=== PATIENT | female | born 1975 | race Caucasian/White ===

== ENCOUNTER → 2018-05-15 12:49 | Outpatient (CLI) | payer SELFPAY ==
[2018-05-15 14:18] LABS: Follicle Stimulating Hormone 4.89 mIU/mL
[2018-05-15 14:32] LABS: TSH w/ Reflex to FT4 2.04 uIU/mL (0.47-4.68)
== END ==
PROVIDERS: Visit Provider Physician Assistant
DX: R45.86 Emotional lability (principal)
CPT/HCPCS: 36415; 83001; 84443

== ENCOUNTER 2021-08-21 10:53 | Emergency (ER) | payer SELFPAY ==
[2021-08-21] VITALS (9 sets, daily range): BP systolic 137–164; BP diastolic 84–109; PULSE 75–93; RESP 16–31; TEMP 36.7; O2SAT 97–100; BMI 29.5
--- NOTE | 2021-08-21 11:04 | DI.CT.S_ITS ---
PROCEDURE: CT ANGIO HEAD AND NECK INDICATIONS: R facial numbness, tingling, right tongue, blurred vision TECHNIQUE: After the administration of intravenous contrast, 1 mm thick sections acquired from the aortic arch through the [place] of [place]. Post-contrast 4.5 mm thick sections then re-acquired from the foramen magnum to the vertex. 3-dimensional czxmjkx-gntcscibh-khwweconqc (MIP) and/or volume rendering reformats were acquired of the central intracranial vasculature and neck separately. For radiation dose reduction, the following was used: automated exposure control, adjustment of mA and/or kV according to patient size. COMPARISON: [facility], CT, CT STROKE, 08/21/2021, 11:14. FINDINGS: Image quality: Excellent. BRAIN: CSF spaces: Ventricles are normal in size and shape. Basal cisterns are patent. No extra-axial fluid collections. Brain: No midline shift. No intracranial bleeds or masses. Ernandez-white matter interface appears intact. Skull and face: Calvarium and facial bones appear intact, without suspicious lesions. Orbits appear normal. Sinuses: Sinuses and mastoids are clear. HEAD CT ANGIOGRAPHY: Anterior circulation: Intracranial internal carotid arteries are normal in size and flow. The flow within the paired anterior cerebral arteries is normal and symmetric. The flow within the middle cerebral arteries is normal and symmetric. The anterior communicating artery is seen. No aneurysms are seen. Posterior circulation: Visualized portions of the vertebral arteries demonstrate normal caliber, and join to form a normal appearing basilar artery. Flow within the posterior cerebral arteries is normal and symmetric. No aneurysms are seen. Vertebral arteries are codominant. 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 The origins of the common carotid arteries appear patent. The common carotid arteries demonstrate normal caliber and courses. The bifurcation regions are both widely patent. The internal carotid arteries demonstrate normal calibers and courses. Posterior circulation: The origins of the vertebral arteries both appear widely patent. The more superior extracranial portions of both vertebral arteries also demonstrate normal courses and calibers. They join to form a normal appearing basilar artery. Soft tissues: Visualized neck soft tissues demonstrate no suspicious abnormalities. Thyroid gland appears heterogeneous. Bones: No suspicious bony lesions. Visualized cervical spine appears normally aligned. IMPRESSION: 1. No acute intracranial process. 2. No areas of hemodynamically significant stenosis, vascular occlusion or aneurysmal dilation within the anterior or posterior circulation. 3. No areas of hemodynamically significant stenosis, vascular occlusion or aneurysmal dilation within the neck vasculature. Any quantitative measurements of stenosis were performed using NASCET criteria. Dictated by: Sushila Sofia M.D. on 08/21/2021 at 11:40 Approved by: Sushila Sofia M.D. on 08/21/2021 at 11:45
--- NOTE | 2021-08-21 11:04 | DI.CT.S_ITS ---
PROCEDURE: CT STROKE INDICATIONS: R facial numbness, tingling, right tongue, blurred vision TECHNIQUE: Noncontrast 4.5 mm thick angled axial sections acquired from the foramen magnum to the vertex, with coronal reformats. For radiation dose reduction, the following was used: automated exposure control, adjustment of mA and/or kV according to patient size. COMPARISON: [facility], CT, CT ANGIO HEAD AND NECK, 08/21/2021, 11:14. FINDINGS: Image quality: Excellent. CSF spaces: Basal cisterns are patent. No extra-axial fluid collections. Ventricles are normal in size and shape. Brain: No midline shift. No intracranial masses or hemorrhage. Ernandez-white matter interface is normal. Skull and face: Calvarium and visualized facial bones are intact, without suspicious lesions. Sinuses: Visualized sinuses and mastoids are clear. IMPRESSION: 1. No acute intracranial process. The above findings were discussed with Dr. Gerson Su on 08/21/2021 at 11:33 a.m. This study fulfills neurological imaging criteria for inclusion or exclusion of acute stroke therapies based on available published neurological imaging guidelines. Dictated by: Sushila Sofia M.D. on 08/21/2021 at 11:33 Approved by: Sushila Sofia M.D. on 08/21/2021 at 11:37
[2021-08-21 11:21] LABS: Add Manual Diff / Slide Review NO; Basophils Absolute Auto 0 /uL (0-100); Basophils Percent Auto 0.7 % (0-2); Eosinophils Absolute Auto 100 /uL (0-450); Eosinophils Percent Auto 2.2 % (2-4); Hematocrit 40.8 % (36-46); Hemoglobin 13.5 g/dL (12.0-16.0); Lymphocytes Absolute Auto 1700 /uL (1100-4500); Lymphocytes Percent Auto 29.6 % (25-40); Mean Corpuscular Hemoglobin 28.4 PG (26-34); Monocytes Absolute Auto 500 /uL (0-900); Monocytes Percent Auto 8.3 % (3-14); Neutrophils Absolute Auto 3400 /uL (1500-7000); Neutrophils Percent Auto 59.2 % (50-75); Platelet Count 339 X10^3/uL (150-400); Red Blood Cell Count 4.75 X10^6/uL (4.0-5.2); Red Cell Distribution Width 14.7 % (11.6-14.8); White Blood Cell Count 5.7 X10^3/uL (4.5-11.0)
[2021-08-21 11:29] LABS: Alanine Aminotransferase 20 IU/L (<35); Albumin 5.2 g/dL (3.5-5.0); Albumin Globulin Ratio 1.3 (1.0-2.8); Alkaline Phosphatase 60 U/L (38-126); Aspartate Aminotransferase 33 IU/L (14-36); BUN Creatinine Ratio 17.1 (6-22); Bilirubin Total 0.5 mg/dL (0.2-1.3); Blood Urea Nitrogen 14 mg/dL (7-17); Calcium 9.4 mg/dL (8.4-10.2); Carbon Dioxide 27 mmol/L (22-32); Chloride 104 mmol/L (98-107); Creatine Kinase 240 U/L (30-135); Estimated Glomerular Filt Rate > 60.0 mL/min (>60); Globulin 3.9 g/dL (1.7-4.1); Glucose 89 mg/dL (70-100); HEMOLYSIS < 15 (0-50); Sodium 142 mmol/L (137-145); Total Protein 9.1 g/dL (6.3-8.2)
[2021-08-21] MEDS: SODIUM CHLORIDE 0.9% 1,000 ML 150 ML IV (11:30)
[2021-08-21 11:39] LABS: Troponin I < 0.012 ng/mL (0.01-0.034)
[2021-08-21 11:44] LABS: CKMB % Relative Index 0.6 % (1.5-5.0); Creatine Kinase MB 1.37 ng/mL (<2.37)
--- NOTE | 2021-08-21 13:54 | ED.NEUROSD ---
HPI - Neuro Symptoms/Deficit General Chief Complaint: Neuro Symptoms/Deficit Stated Complaint: facial numbness/ HTN Time Seen by Provider: 08/21/21 10:55 Source: patient Mode of arrival: Family Vehicle History of Present Illness HPI Narrative: 46-year-old female nonsmoker with history of palpitations presents by EMS for evaluation of headache neck pain and right-sided facial numbness and tingling as well as right-sided tongue involvement. She states that she has had a headache for the past few days which isn't all that abnormal from her historical migraines. About 1-2 hours prior to her arrival she started developing some right-sided facial tingling. She also claims her blood pressure is elevated. She denies any obvious provocation of her headache. She denies any recent trauma or injury. She has no fever or chills. She denies nausea, vomiting or diarrhea. She has no chest pain or shortness of breath. She complains of R sided head pain and cheek pain with involvement of her ear and upper teeth. She denies runny nose, sore throat or drainage in her mouth. She denies any numbness to her teeth. On Anticoagulants: No Related Data Previous Rx's Medication Instructions Recorded ketorolac 10 mg tablet 10 mg PO Q6H PRN #14 tab 08/21/21 metoclopramide HCl 10 mg tablet 10 mg PO Q6H PRN #20 tab 08/21/21 (Reglan) ondansetron 4 mg disintegrating 4 mg PO TID-QID PRN #10 tab 08/21/21 tablet Allergies Allergy/AdvReac Type Severity Reaction Status Date / Time No Known Drug Allergies Allergy Unverified 05/15/18 11:56 Review of Systems Review of Systems Narrative: GENERAL: See HPI HEENT: See HPI RESPIRATORY: Denies dyspnea, cough, wheezing, hemoptysis, sputum. CARDIOVASCULAR: Denies chest pain, palpitations, orthopnea, edema, GASTROINTESTINAL: Denies nausea, vomiting, abdominal pain, diarrhea, constipation, melena. : Denies dysuria, frequency, incontinence, hematuria, urinary retention. MUSCULOSKELETAL: denies weakness, joint pain, or bony pain SKIN: Denies rash, skin lesions, or other NEUROLOGIC: See HPI PSYCHIATRIC: No concerning psychosocial issues. 12 point review of systems is negative except for those stated above Hematologic/Lymphatic On Anticoagulants: No Patient History Social History Smoking Status: Never smoker Smoking Status: Never smoker alcohol intake frequency: 0-2 drinks per day Substance Use Type: does not use Exam Narrative Exam Narrative: GENERAL: [46 year old patient appears stated age. Well-developed patient, in mild distress. GCS 15 HEAD: Atraumatic. Tender to palpate along right side ago mom a and anterior to ear, no obvious swelling, erythema or warmth. EYES: Pupils equal round and reactive. Extraocular motions intact. No scleral icterus. No injection or drainage. ENT: Nose without bleeding, purulent drainage. Throat without erythema, tonsillar hypertrophy or exudate. Airway patent. No intraoral abnormalities are obvious. NECK: Trachea midline. Non tender CARDIOVASCULAR: Regular rate and rhythm without murmurs, gallops, or rubs. RESPIRATORY: Clear to auscultation. Breath sounds equal bilaterally. No wheezes, rales, or rhonchi. GASTROINTESTINAL: Abdomen soft, non-tender, nondistended. EXTREMITIES: No edema or joint tenderness. BACK: Nontender without deformity or crepitance. No flank tenderness. NEURO: AOx3. SKIN: No rash or erythema of visible areas NIH Stroke Scale 1a. LOC: Patient is alert and keenly responsive (0) 1b. LOC Questions: Patient answers both LOC questions accurately (0) 1c. LOC Commands: Patient performs both tasks correctly (0) 2. Best Gaze: Normal (0) 3. Visual: No visual loss (0) 4. Facial palsy: Normal symmetrical movements (0) 5. Motor arm: No drift (0) 6. Motor leg: No drift (0) 7. Limb ataxia: Absent (0) 8. Sensory: Normal (0) 9. Best language: No aphasia; normal (0) 10. Dysarthria: Normal (0) 11. Extinction and inattention: No abnormality (0) NIHSS: 0 Initial Vital Signs Initial Vital Signs: Vital Signs Temperature 98.1 F 08/21/21 11:05 Pulse Rate 93 H 08/21/21 11:05 Respiratory Rate 18 08/21/21 11:05 Blood Pressure 164/104 H 08/21/21 11:05 Pulse Oximetry 99 08/21/21 11:05 Course Orders Ordered: ED Orders 08/21/21 11:[address] angio head and neck Stat EKG-12 Lead Stat 08/21/21 11:10 Complete Blood Count AUTO DIFF Stat Comprehensive Metabolic Panel Stat Troponin & CK Cardiac Panel Stat 08/21/21 14:21 Consult to CHEMICAL EQUIPMENT REPAIRER - [place] Stat Discontinued Medications Dexamethasone (Dexamethasone 10 Mg/Ml Vial) 10 mg IV NOW ONE Stop: 08/21/21 14:10 Last Admin: 08/21/21 14:24 Dose: 10 mg Documented by: NICOLE Sodium Chloride (Normal Saline 0.9%) 1,000 mls @ 150 mls/hr IV CONT MOON Last Infusion: 08/21/21 15:15 Dose: 0 mls/hr Documented by: Admin: 08/21/21 11:30 Dose: 150 mls/hr Documented by: NICOLE Ketorolac Tromethamine (Ketorolac 30 Mg/Ml Vial) 15 mg IV NOW ONE Stop: 08/21/21 14:10 Last Admin: 08/21/21 14:24 Dose: 15 mg Documented by: NICOLE Metoclopramide HCl (Metoclopramide 10 Mg/2 Ml Inj) 10 mg IV NOW ONE Stop: 08/21/21 14:10 Last Admin: 08/21/21 14:24 Dose: 10 mg Documented by: NICOLE Reevaluation(s) Reevaluation #1: Patient still having right-sided head and facial pain after initial set of images, despite blood pressure improving to the 130s. Treatment for atypical migraine ordered Reevaluation #2: Patient has complete resolution of symptoms after migraine therapies. Vital Signs Vital signs: Vital Signs - 8 hr 08/21/21 12:00 08/21/21 12:30 08/21/21 13:00 Pulse Rate 76 78 75 Respiratory Rate 16 31 H 20 Blood Pressure 149/95 H 152/92 H 155/94 H Pulse Oximetry 98 98 98 08/21/21 13:30 08/21/21 14:00 Pulse Rate 75 81 Respiratory Rate 20 20 Blood Pressure 160/84 H 137/90 Pulse Oximetry 98 98 MDM - Neuro Symptoms/Deficit Lab Data Result diagrams: 08/21/21 11:10 08/21/21 11:10 Labs: Lab Results 08/21/21 08/21/21 Range/Units 11:10 11:10 WBC 5.7 (4.5-11.0) X10^3/uL RBC 4.75 (4.0-5.2) X10^6/uL Hgb 13.5 (12.0-16.0) g/dL Hct 40.8 (36-46) % MCV 86.0 (80-100) fL MCH 28.4 (26-34) PG MCHC 33.0 (30-36) % RDW 14.7 (11.6-14.8) % Plt Count 339 (150-400) X10^3/uL Neut % (Auto) 59.2 (50-75) % Lymph % (Auto) 29.6 (25-40) % [place] % (Auto) 8.3 (3-14) % Eos % (Auto) 2.2 (2-4) % Baso % (Auto) 0.7 (0-2) % Neut # (Auto) 3400 (3226-4237) /uL Lymph # (Auto) 1700 (1320-6312) /uL [place] # (Auto) 500 (0-900) /uL Eos # (Auto) 100 (0-450) /uL Baso # (Auto) 0 (0-100) /uL Sodium 142 (137-145) mmol/L Potassium 4.0 (3.4-5.1) mmol/L Chloride 104 (98-107) mmol/L Carbon Dioxide 27 (22-32) mmol/L BUN 14 (7-17) mg/dL Creatinine 0.82 (0.52-1.04) mg/dL Estimated GFR > 60.0 (>60) mL/min BUN/Creatinine Ratio 17.1 (6-22) Glucose 89 (70-100) mg/dL Calcium 9.4 (8.4-10.2) mg/dL Total Bilirubin 0.5 (0.2-1.3) mg/dL AST 33 (14-36) IU/L ALT 20 (<35) IU/L Alkaline Phosphatase 60 (38-126) U/L Total Creatine Kinase 240 H (30-135) U/L CK-MB (CK-2) 1.37 (<2.37) ng/mL CK-MB (CK-2) Rel Index 0.6 L (1.5-5.0) % Troponin I < 0.012 (0.01-0.034) ng/mL Total Protein 9.1 H (6.3-8.2) g/dL Albumin 5.2 H (3.5-5.0) g/dL Globulin 3.9 (1.7-4.1) g/dL Albumin/Globulin Ratio 1.3 (1.0-2.8) Imaging Data CT scan - head: Radiologist's Impression: [address] [address] [address] Scan Report Signed Patient: Bobbi Ray MR#: [id number] : 1975 Acct:[id number] Age/Sex: 46 / F Date of Service: 08/21/21 Loc: ED Accession Number: [id number] ?? Procedure: CT Stroke Ordering Provider: Gerson Su D.O. PROCEDURE:? CT STROKE ? INDICATIONS:? R facial numbness, tingling, right tongue, blurred vision ? TECHNIQUE:? Noncontrast 4.5 mm thick angled axial sections acquired from the foramen magnum to the vertex, with coronal reformats.? For radiation dose reduction, the following was used:? automated exposure control, adjustment of mA and/or kV according to patient size.? ? COMPARISON:? [facility], CT, CT ANGIO HEAD AND NECK, 08/21/2021, 11:14. ? FINDINGS:? Image quality:? Excellent.? ? CSF spaces:? Basal cisterns are patent.? No extra-axial fluid collections.? Ventricles are normal in size and shape.? ? Brain:? No midline shift.? No intracranial masses or hemorrhage.? Ernandez-white matter interface is normal.? ? Skull and face:? Calvarium and visualized facial bones are intact, without suspicious lesions.? ? Sinuses:? Visualized sinuses and mastoids are clear.? ? IMPRESSION:? ? 1. No acute intracranial process. ? The above findings were discussed with Dr. Gerson Su on 08/21/2021 at 11:33 a.m. ? This study fulfills neurological imaging criteria for inclusion or exclusion of acute stroke therapies based on available published neurological imaging guidelines.? ? ? Dictated by: Sushila Sofia M.D. on 08/21/2021 at 11:33 ? ? Approved by: Sushila Sofia M.D. on 08/21/2021 at 11:37 ? CTA Head/Neck: Radiologist's Impression: Launch?Image [address] [address] [address] Scan Report Signed Patient: Bobbi Ray MR#: [id number] : 1975 Acct:[id number] Age/Sex: 46 / F Date of Service: 08/21/21 Loc: ED Accession Number: [id number] ?? Procedure: CT angio head and neck Ordering Provider: Gerson Su D.O. PROCEDURE:? CT ANGIO HEAD AND NECK ? INDICATIONS:? R facial numbness, tingling, right tongue, blurred vision ? TECHNIQUE:? After the administration of intravenous contrast, 1 mm thick sections acquired from the aortic arch through the [place] of [place].? Post-contrast 4.5 mm thick sections then re-acquired from the foramen magnum to the vertex.? 3-dimensional secriau-mtfqvpgdl-xcgnwqlirp (MIP) and/or volume rendering reformats were acquired of the central intracranial vasculature and neck separately. For radiation dose reduction, the following was used:? automated exposure control, adjustment of mA and/or kV according to patient size.? ? COMPARISON:? [facility], CT, CT STROKE, 08/21/2021, 11:14. ? FINDINGS:? Image quality:? Excellent.? ? BRAIN:? CSF spaces:? Ventricles are normal in size and shape.? Basal cisterns are patent.? No extra-axial fluid collections.? ? Brain:? No midline shift.? No intracranial bleeds or masses.? Ernandez-white matter interface appears intact.? ? Skull and face:? Calvarium and facial bones appear intact, without suspicious lesions.? Orbits appear normal.? ? Sinuses:? Sinuses and mastoids are clear.? ? HEAD CT ANGIOGRAPHY:? Anterior circulation:? Intracranial internal carotid arteries are normal in size and flow.? The flow within the paired anterior cerebral arteries is normal and symmetric.? The flow within the middle cerebral arteries is normal and symmetric.? The anterior communicating artery is seen.? No aneurysms are seen.? ? Posterior circulation:? Visualized portions of the vertebral arteries demonstrate normal caliber, and join to form a normal appearing basilar artery.? Flow within the posterior cerebral arteries is normal and symmetric.? No aneurysms are seen.? Vertebral arteries are codominant. ? NECK CT ANGIOGRAPHY:? Carotid system:? 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 The origins of the common carotid arteries appear patent.? The common carotid arteries demonstrate normal caliber and courses.? The bifurcation regions are both widely patent.? The internal carotid arteries demonstrate normal calibers and courses.? ? Posterior circulation:? The origins of the vertebral arteries both appear widely patent.? The more superior extracranial portions of both vertebral arteries also demonstrate normal courses and calibers.? They join to form a normal appearing basilar artery.? ? Soft tissues:? Visualized neck soft tissues demonstrate no suspicious abnormalities.? Thyroid gland appears heterogeneous. ? Bones:? No suspicious bony lesions.? Visualized cervical spine appears normally aligned.? IMPRESSION:? ? 1. No acute intracranial process. ? 2. No areas of hemodynamically significant stenosis, vascular occlusion or aneurysmal dilation within the anterior or posterior circulation. ? 3. No areas of hemodynamically significant stenosis, vascular occlusion or aneurysmal dilation within the neck vasculature.? ? Any quantitative measurements of stenosis were performed using NASCET criteria.? ? ? Dictated by: Sushila Sofia M.D. on 08/21/2021 at 11:40 ? ? Approved by: Sushila Sofia M.D. on 08/21/2021 at 11:45 ? MDM Narrative Medical decision making narrative: Headache considerations include, but not limited to: Subarachnoid hemorrhage, but unlikely as patient denies sudden onset of pain, not worst of life, or neck pain Meningitis considered, but thought unlikely given lack of Brudzinski's, Kernig's sign, altered mental status or fever Giant cell arteritis considered, but thought unlikely given lack of unilateral findings, pain in faith, vision change HTN Emergency considered, but thought unlikely given normal vitals Other serious diagnoses considered unlikely given lack of red flag findings such as sudden onset, increasing frequency, immunocompromise, systemic signs (fever, chills, stiff neck, or rash), focal neurologic findings, trauma, blood thinners, etc. Patient's symptoms improved over duration of stay with above-stated therapies. Findings and discharge diagnosis discussed with patient/family followed by verbalization of understanding Return precautions discussed with patient/family whom verbalize understanding. Discharge Plan Departure Patient Disposition: Home Clinical Impression: Atypical migraine, Hypertension Instructions: DI for Headache Activity Restrictions/Additional Instructions: *You have been diagnosed with [atypical migraine Headache ]. Your history and physical exam as well as labs, imaging and response to therapies are very reassuring. There is no evidence of stroke, bleeding in your brain, hypertensive emergency or other significant diagnosis which would require a specific or immediate intervention *What to do: *Take medications as directed *Follow up with your primary care provider in 2-3 days, call for an appointment. Let them know you were seen in the Emergency Department and that we ask that you be seen in follow up *Return to ER if you should have any new, worsening or concerning symptoms, such as [ fever > 101F, neck pain or stiffness, vomiting, confusion, seizure, focal weakness, vision change, speech deficit or other concerning symptoms ] . Prescriptions: New metoclopramide HCl [Reglan] 10 mg tablet 10 mg PO Q6H PRN (Reason: nausea and vomiting) Qty: 20 0RF ondansetron 4 mg tablet,disintegrating 4 mg PO TID-QID PRN (Reason: nausea and vomiting) Qty: 10 0RF ketorolac 10 mg tablet 10 mg PO Q6H PRN (Reason: pain) Qty: 14 0RF
[2021-08-21] MEDS: METOCLOPRAMIDE 10 MG/2 ML INJ IV (14:24)
[2021-08-21] MEDS: DEXAMETHASONE 10 MG/ML VIAL IV (14:24)
[2021-08-21] MEDS: KETOROLAC 30 MG/ML VIAL 15 MG IV (14:24)
--- NOTE | 2021-08-21 15:20 | CM.SWNOTE ---
SKOOG OPERATOR Note SKOOG OPERATOR receives consult and enters room to meet with patient. Patient is 46 y/o female who presents to ED via EMS due to concern for facial numbness and hypertension. SKOOG OPERATOR receives consult regarding patient not currently established with insurance. 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 Patient states she has attempted to apply several times with [facility] and has been denied. Registration provides patient with medical assistance application form regarding patient's ED visit. 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 Patient presents as resourceful and competent. Patient states she is able to fill out assistance application and will mail [facility] to [facility]. Plan: Patient to d/c when medically clear. [place]
== END 2021-08-21 16:46 | disposition home or self-care (01) ==
PROVIDERS: Emergency Provider Emergency Medicine
DX: G43.909 Migraine, unspecified, not intractable, without status migrainosus (principal); I10 Essential (primary) hypertension
CPT/HCPCS: 36415; 70450; 70496; 70498; 80053; 82550; 82553; 84484; 85025; 93005; 93010; 96361; 96374; 96375; 99284; J1100; J1885; J2765; Q9967

== ENCOUNTER → 2022-03-22 07:56 | Outpatient (CLI) | payer OTHER, SELFPAY ==
--- NOTE | 2022-03-22 | DI.US.S_ITS ---
PROCEDURE: US ABDOMEN LIMITED INDICATIONS: RIGHT UPPER QUADRANT PAIN TECHNIQUE: Real-time focused scanning was performed of the abdomen, with image documentation. COMPARISON: [facility], US, ABDOMEN COMPLETE, 07/20/2013, 10:33. FINDINGS: The liver demonstrates mildly enlarged size. The liver demonstrates generalized mildly increased echogenicity. This decreases ultrasound sensitivity for detection of hepatic masses. Multiple liver cysts are seen, with the largest on the left measuring up to 17 mm. On the right, a cystic cluster versus a septated cyst can be seen that measures up to 14 mm. The main portal vein demonstrates normal size and demonstrates normal appearing, hepatopetal flow. No findings of gallstones or sludge are seen. The gallbladder wall is not thickened, measuring 3 mm or less. No specific pericholecystic fluid is seen. The sonographic Helm sign is negative. There is no biliary dilatation, the common bile duct measures 4-5 mm. No significant pancreatic abnormality is seen on these images. At the inferior pole of the right kidney, incidental note is made of an anechoic 13 mm cyst. IMPRESSION: The gallbladder demonstrates a normal sonographic appearance. No biliary dilatation is seen. Mildly enlarged, mildly fatty liver. Liver and right renal cysts can be seen. Dictated by: Ac Silva M.D. on 03/22/2022 at 13:27 Approved by: Ac Silva M.D. on 03/22/2022 at 13:29
== END ==
PROVIDERS: PCP Physician Assistant; Referring Provider Physician Assistant; Visit Provider Physician Assistant
DX: K76.89 Other specified diseases of liver (principal); K76.0 Fatty (change of) liver, not elsewhere classified; N28.1 Cyst of kidney, acquired; R10.11 Right upper quadrant pain
CPT/HCPCS: 76705

== ENCOUNTER → 2022-04-17 17:49 | Outpatient (CLI) | payer OTHER, SELFPAY ==
[2022-04-17 19:35] LABS: Influenza A - CEPHEID Flu A POSITIVE (NEGATIVE); Influenza B - CEPHEID Flu B NEGATIVE (NEGATIVE); Respiratory Syncytial Virus Negative (Negative)
[2022-04-17 19:42] LABS: COVID-19 CEPHEID 4-PLEX PCR Negative (Negative)
== END ==
PROVIDERS: PCP Physician Assistant; Visit Provider Physician Assistant
DX: R05.1 Acute cough (principal)
CPT/HCPCS: 0241U

== ENCOUNTER → 2024-03-12 14:18 | Outpatient (CLI) | payer OTHER, SELFPAY ==
[2024-03-12 15:32] LABS: Add Manual Diff / Slide Review NO; Basophils Absolute Auto 100 /uL (0-100); Eosinophils Absolute Auto 100 /uL (0-450); Eosinophils Percent Auto 2.3 % (2-4); Hemoglobin 10.1 g/dL (12.0-16.0); Lymphocytes Absolute Auto 1900 /uL (1100-4500); Lymphocytes Percent Auto 32.3 % (25-40); Mean Corpuscular HGB Conc 31.6 % (30-36); Mean Corpuscular Hemoglobin 22.5 PG (26-34); Mean Corpuscular Volume 71.2 fL (80-100); Monocytes Absolute Auto 500 /uL (0-900); Monocytes Percent Auto 8.8 % (3-14); Neutrophils Absolute Auto 3300 /uL (1500-7000); Neutrophils Percent Auto 55.6 % (50-75); Platelet Count 364 X10^3/uL (150-400); Red Blood Cell Count 4.49 X10^6/uL (4.0-5.2); Red Cell Distribution Width 16.9 % (11.6-14.8); White Blood Cell Count 5.9 X10^3/uL (4.5-11.0)
[2024-03-12 15:49] LABS: HEMOLYSIS < 15 (0-50); Iron 29 ug/dL (37-170)
[2024-03-12 15:54] LABS: Alanine Aminotransferase 12 IU/L (<35); Albumin 4.5 g/dL (3.5-5.0); Albumin Globulin Ratio 1.6 (1.0-2.8); Alkaline Phosphatase 68 U/L (38-126); Aspartate Aminotransferase 24 IU/L (14-36); BUN Creatinine Ratio 14.5 (6-22); Bilirubin Total 0.5 mg/dL (0.2-1.3); Blood Urea Nitrogen 12 mg/dL (7-17); Calcium 9.3 mg/dL (8.4-10.2); Carbon Dioxide 24 mmol/L (22-32); Chloride 106 mmol/L (98-107); Estimated Glomerular Filt Rate > 60 mL/min (>60); Globulin 2.9 g/dL (1.7-4.1); Glucose 72 mg/dL (70-100); HEMOLYSIS < 15 (0-50); Potassium 4.1 mmol/L (3.4-5.1); Sodium 138 mmol/L (137-145); Total Protein 7.4 g/dL (6.3-8.2)
[2024-03-12 15:59] LABS: Percent Iron Saturation 6 % (15-50); Total Iron Binding Capacity 451 ug/dL (265-497); Transferrin 358 mg/dL (206-381)
[2024-03-12 16:21] LABS: TSH w/ Reflex to FT4 4.14 uIU/mL (0.47-4.68)
== END ==
PROVIDERS: PCP Physician Assistant; Referring Provider Family Medicine; Visit Provider Family Medicine
DX: N92.0 Excessive and frequent menstruation with regular cycle (principal); Z76.89 Persons encountering health services in other specified circumstances; E61.1 Iron deficiency; G62.9 Polyneuropathy, unspecified; E55.9 Vitamin D deficiency, unspecified; R00.2 Palpitations; R20.2 Paresthesia of skin
CPT/HCPCS: 36415; 80053; 83540; 83550; 83735; 84443; 85025

== ENCOUNTER → 2024-03-22 13:59 | Outpatient (CLI) | payer OTHER, SELFPAY ==
--- NOTE | 2024-03-22 14:15 | DI.US.S_ITS ---
PROCEDURE: US ABDOMEN LIMITED INDICATIONS: RUQ pain, cyst on liver (prior US 2021) TECHNIQUE: Real-time scanning was performed of the abdominal and retroperitoneal organs, with image documentation. COMPARISON: [facility], US, US ABDOMEN LIMITED, 03/22/2022, 8:35. FINDINGS: Liver: Liver is normal in . Multiple foci of decreased echogenicity are present within the liver the largest measuring 2.4 cm. Gallbladder: No gallstones. No wall thickening. No pericholecystic edema. Negative sonographic Helm's sign. Biliary ducts: Intrahepatic bile ducts are non-dilated. Extrahepatic bile duct caliber measures 4.9 mm. Normal is 6-7 mm or less in diameter, or 10 mm or less post-cholecystectomy. Pancreas: Visualized portions of the pancreas are sonographically normal. Miscellaneous: No free abdominal fluid. IMPRESSION: Multiple simple appearing hepatic cysts. Dictated by: Sushila Sofia M.D. on 03/22/2024 at 20:44 Approved by: Sushila Sofia M.D. on 03/22/2024 at 20:45
[2024-03-22 15:03] LABS: Reticulocyte Count, Percent 1.1 % (1.1-2.6)
[2024-03-22 16:35] LABS: Pregnancy Test Urine Negative (Negative)
[2024-03-25 19:08] LABS: Deamidated Gliadin Ab IgA 10 units (0-19); Deamidated Gliadin Ab IgG 6 units (0-19); Immunoglobulin A,Qn 77 mg/dL (87-352); t-Transglutaminase IgA <2 U/mL (0-3)
[2024-03-26 20:09] LABS: Estrogen 248 pg/mL (.)
== END ==
PROVIDERS: PCP Family Medicine; Referring Provider Family Medicine; Visit Provider Family Medicine
DX: K76.89 Other specified diseases of liver (principal); K76.0 Fatty (change of) liver, not elsewhere classified; R10.11 Right upper quadrant pain; R20.2 Paresthesia of skin; E61.1 Iron deficiency; N95.1 Menopausal and female climacteric states; N92.0 Excessive and frequent menstruation with regular cycle; Z32.00 Encounter for pregnancy test, result unknown; R00.2 Palpitations
CPT/HCPCS: 36415; 76705; 81025; 82672; 82784; 83001; 83516; 85045

== ENCOUNTER → 2024-03-23 13:10 | Outpatient (CLI) | payer OTHER, SELFPAY ==
[2024-03-25 10:19] LABS: Fecal Immunochemical Test Negative (Negative)
== END ==
LOC: LAB 13:12
PROVIDERS: PCP Family Medicine; Referring Provider Family Medicine; Visit Provider Family Medicine
DX: R20.2 Paresthesia of skin (principal); E61.1 Iron deficiency; N92.0 Excessive and frequent menstruation with regular cycle; K76.0 Fatty (change of) liver, not elsewhere classified
CPT/HCPCS: 82274

== ENCOUNTER → 2024-05-18 11:44 | Outpatient (CLI) | payer OTHER, SELFPAY ==
[2024-05-18 12:21] LABS: Reticulocyte Count, Percent 0.7 % (1.1-2.6)
[2024-05-18 12:47] LABS: HEMOLYSIS < 15 (0-50); Iron 40 ug/dL (37-170)
[2024-05-18 12:58] LABS: Percent Iron Saturation 11 % (15-50); Total Iron Binding Capacity 367 ug/dL (265-497); Transferrin 327 mg/dL (206-381)
== END ==
PROVIDERS: PCP Family Medicine; Referring Provider Family Medicine; Visit Provider Family Medicine
DX: E61.1 Iron deficiency (principal)
CPT/HCPCS: 36415; 83540; 83550; 85045

== ENCOUNTER → 2024-05-20 16:56 | Outpatient (CLI) | payer OTHER, SELFPAY ==
--- NOTE | 2024-05-20 16:57 | DI.MG.S_ITS ---
BILATERAL DIGITAL SCREENING MAMMOGRAM 3D/2D WITH CAD: 05/20/2024 CLINICAL: Baseline exam. Routine screening. Family history of breast cancer. No prior exams were available for comparison. The breasts are heterogeneously dense, which may obscure small masses (category c / 51-75% glandular tissue). Current study was also evaluated with a Computer Aided Detection (CAD) system. No significant masses, calcifications, or other findings are seen in either breast. IMPRESSION: NEGATIVE There is no mammographic evidence of malignancy. A 1 year screening mammogram is recommended. Based on the Tyrer Cuzick model (a risk assessment model) the patient's lifetime risk is 15.3% and her 10 year risk is 3.2%. According to the ACR, ACS, and NCCN guidelines, an annual breast MRI exam along with mammogram is recommended if the patient's lifetime risk is 20% or greater. This exam was interpreted at Station ID: [id number]. NOTE: For mammograms, a report in lay terms will be sent to the patient. Approximately 15% of breast malignancies will not be visualized mammographically. In the management of a palpable breast mass, a negative mammogram must not discourage biopsy of a clinically suspicious lesion. Electronically Signed By: Tae [email or web address]:05/21/2024 19:47:09 letter sent: Normal Exam ACR BI-RADS Category 1: Negative
== END ==
PROVIDERS: PCP Family Medicine; Referring Provider Family Medicine; Visit Provider Family Medicine
DX: Z12.31 Encounter for screening mammogram for malignant neoplasm of breast (principal); Z80.3 Family history of malignant neoplasm of breast; R92.333 Mammographic heterogeneous density, bilateral breasts
CPT/HCPCS: 77063; 77067

== ENCOUNTER → 2024-05-22 13:27 | Outpatient (CLI) | payer OTHER, SELFPAY ==
--- NOTE | 2024-05-22 13:29 | DI.CT.S_ITS ---
PROCEDURE: CT ABDOMEN PELVIS W CON INDICATIONS: Unexplained weight loss TECHNIQUE: After the administration of intravenous contrast, axial sections acquired from the lung bases to the pubic symphysis. Coronal and sagittal reformats were performed. For radiation dose reduction, the following was used: automated exposure control, adjustment of mA and/or kV according to patient size. COMPARISON: [facility], , US ABDOMEN LIMITED, 03/22/2024, 14:12. FINDINGS: Image quality: Diagnostic. Lower Chest: No significant findings. ABDOMEN: Liver: No solid mass. Simple liver cysts are again seen. Gallbladder: No radiopaque gallstones or wall thickening. Biliary ducts: No biliary dilation. Pancreas: No ductal dilation. Spleen: Size is within normal limits. Adrenal Glands: No adrenal nodules. Kidneys and Ureters: No hydronephrosis. No solid mass. No complex renal cystic lesion which requires follow up. Stomach and Bowel: Normal colonic caliber, without significant wall thickening. Colonic diverticulosis is seen, without findings of active diverticulitis. No dilated loops of small bowel are seen. Peritoneum: No abnormal intraperitoneal fluid. No free air. Ventral Wall: No significant ventral hernia. Abdominal Nodes: No retroperitoneal or mesenteric adenopathy by size criteria. Vessels: Aorta and inferior vena cava are normal in size. PELVIS: Pelvic Organs: No adnexal masses are seen on either side. Bladder: No bladder wall thickening, accounting for underdistention. Pelvic Nodes: No enlarged lymph nodes. Miscellaneous: No inguinal hernias are seen. Bones: No aggressive osseous abnormality. IMPRESSION: No imaging explanation is found for this patient's presenting symptoms. Additional findings: Simple liver cysts Diverticulosis, without active diverticulitis Dictated by: Ac Silva M.D. on 05/22/2024 at 14:09 Approved by: Ac Silva M.D. on 05/22/2024 at 14:11
== END ==
PROVIDERS: PCP Family Medicine; Referring Provider Family Medicine; Visit Provider Family Medicine
DX: K76.89 Other specified diseases of liver (principal); K57.90 Diverticulosis of intestine, part unspecified, without perforation or abscess without bleeding; R63.4 Abnormal weight loss; E61.1 Iron deficiency
CPT/HCPCS: 74177; Q9967

== ENCOUNTER 2024-08-26 11:46 | Day surgery (SDC) | payer OTHER, SELFPAY ==
--- NOTE | 2024-08-26 | PATH_ITS ---
[facility] Accession Number: [id number] No. of containers..02 Tissue . 01 Material submitted: . PART A: gastrointestinal site - ANTRUM PART B: duodenum - DUODENUM . 01 Diagnosis: Part A: ANTRUM: Gastric mucosa with mild chronic inflammation. No Helicobacter organisms identified. No intestinal metaplasia, dysplasia, or malignancy identified. . Part B: DUODENUM: Duodenal mucosa with no diagnostic alterations. No active inflammation and no evidence of celiac disease. [facility] 08/31/2024 1600 Local . 01 Electronically signed: . Tyrone Ramon MD, Pathologist NPI- [id number] . 01 Gross description: . A. Received in formalin, labeled with two identifiers and antrum, are three may soft tissue fragments measuring 0.3-0.4 cm in greatest dimension. Submitted in cassette A1. . B. Received in formalin, labeled with two identifiers and duodenum, are four may soft tissue fragments measuring 0.2-0.3 cm in greatest dimension. Submitted in cassette B1. ([id number]) /FRFrancoise 08/31/2024 1600 Local . 01 Microscopic: . Part A: ANTRUM: An immunohistochemical stain was performed to evaluate for Helicobacter organisms and is negative. The control stains appropriately. * This test was developed and the performance characteristics were validated by [facility]. It has not been cleared or approved by the Food and Drug Administration. . 01 Pathologist provided ICD-10: K29.50 . 01 CPT . 161152, 237123, Q00567 Specimen Comment: A courtesy copy of this report has been sent to [phone] Performed at: [address] [id number], [place], [place] [id number] MD Tyrone Ramon MD Phone: [phone]
[2024-08-26 12:23] VITALS: BP 144/81; PULSE 86; RESP 20; TEMP 36.6; O2SAT 98
[2024-08-26] MEDS: LACTATED RINGERS 1,000 ML 42 ML IV (12:24)
--- NOTE | 2024-08-26 12:53 | P.HP_ITS ---
History of Present Illness History of Present Illness Date Patient Seen: 08/26/24 Time Patient Seen: 12:54 Chief complaint: EGD/Colonoscopy Narrative: Bobbi is a 49-year-old woman here for EGD and colonoscopy. See the office note for details. [facility] Medical History (Updated 05/19/24 @ 09:24 by Colette Em DO) Viral URI with cough Social History Smoking Status: Never smoker Meds Home Medications and Allergies Home Medications Medication Instructions Recorded Confirmed Type paroxetine HCl 10 mg tablet 10 mg PO DAILY 03/01/24 06/21/24 History ferrous sulfate 325 mg (65 mg 325 mg PO Q OTHER DAY #90 tabs 03/15/24 06/21/24 Rx iron) tablet sodium,potassium,mag sulfates 17.5 See Rx Instructions PO .COMPLEX 07/27/24 Rx gram-3.13 gram-1.6 gram oral soln #354 mL (Suprep Bowel Prep Kit) Allergies Allergy/AdvReac Type Severity Reaction Status Date / Time No Known Drug Allergies Allergy Unverified 06/21/24 10:38 Exam Vital Signs (past 8 hours): - 08/26/24 12:23 Temperature 97.8 F Pulse Rate 86 Respiratory Rate 20 Blood Pressure 144/81 H Pulse Oximetry 98 Oxygen Delivery Method Room Air Oxygen Delivery Method Room Air Const General: No acute distress Assessment & Plan Assessment and plan (1) Abdominal pain: Qualifiers: Abdominal location: right upper quadrant Qualified Code(s): R10.11 - Right upper quadrant pain Status: Acute Plan EGD and colonoscopy Time-Based Coding :: [TOTAL MINUTES] spent with patient and on the chart (including review of chart, obtaining history, exam, reviewing outside data, placing orders, documenting exam and treatment plan, and counseling patient) on [DATE]. [employer] Document charge(s): No
[2024-08-26 13:31] VITALS: BP 119/71; PULSE 84; RESP 16; TEMP 36.3; O2SAT 99
--- NOTE | 2024-08-26 13:32 | PM.OP.EC ---
Operative Date/Time/Diagnoses Date of procedure: 08/26/24 Time of procedure: 13:32 Pre-op diagnosis: Abdominal pain Post-op diagnosis: same Procedure & Clinicians Study performed: EGD and colonoscopy Same procedure as scheduled: Yes Surgeon: Jose Zarate Procedure Notes Procedure in detail: Surgeon: Jose Zarate MD Anesthesia: Gabby Loving CRNA Procedure in detail: A timeout was performed. A bite blocked was placed and monitors were attached to the patient. The patient was positioned in the left lateral decubitus position. Sedation was administered. Once the patient was sedated the endoscope was inserted through the bite block and passed through the esophagus and stomach and into the duodenum. Random biopsies were taken from the duodenal mucosa with cold forceps. We then withdrew the scope into the stomach. No gross abnormalities were visible. Random biopsies were taken the antrum with cold forceps. The endoscope was retroflexed and no clinically significant hiatal hernia was noted. The endoscope was straightned and withdrawn into the esophagus. No other abnormalities were found. EGD findings: Grossly normal EGD Next we repositioned the patient for a colonoscopy. A digital rectal exam was performed and was normal. The colonoscope was inserted and advanced to the cecum. The appendiceal orifice was identified and photographed. The scope was slowly withdrawn over greater than 6 minutes. No abnormalities were found. The scope was retroflexed in the rectum and no other abnormalities were seen. Colonoscopy findings: Normal colon Total procedural EBL: 5 mL Scope withdrawal time: 8 minutes Sedation minutes: 22 minutes Post-procedure Recommendations: Colonscopy in 10 years Disposition: PACU
[2024-08-26 13:36] VITALS: BP 125/79; PULSE 68; RESP 16; O2SAT 99
[2024-08-26 13:41] VITALS: BP 128/77; PULSE 71; RESP 16; O2SAT 99
[2024-08-26 13:56] VITALS: BP 120/76; PULSE 64; RESP 16; TEMP 36.6; O2SAT 99
== END 2024-08-26 13:58 | disposition home or self-care (01) ==
PROVIDERS: PCP Family Medicine; Referring Provider Surgery; Visit Provider Surgery
PROC: 0DJ08ZZ Inspection of Upper Intestinal Tract, Via Natural or Artificial Opening Endoscopic (ICD-10-PCS; CPT 43239; principal; 2024-08-26 13:00)
PROC: 0DJD8ZZ Inspection of Lower Intestinal Tract, Via Natural or Artificial Opening Endoscopic (ICD-10-PCS; CPT 45378; 2024-08-26 13:00)
DX: K29.50 Unspecified chronic gastritis without bleeding (principal)
CPT/HCPCS: 43239; 45378; J2704

== ENCOUNTER 2025-01-31 14:30 | Emergency (ER) | payer OTHER, SELFPAY ==
[2025-01-31 14:33] VITALS: BP 149/90; PULSE 99; RESP 18; TEMP 36.7; O2SAT 96; BMI 29.8
== END 2025-01-31 15:14 | disposition left against medical advice (07) ==
PROVIDERS: PCP Family Medicine

== ENCOUNTER 2025-01-31 16:38 | Emergency (ER) | payer OTHER, SELFPAY ==
[2025-01-31 16:50] VITALS: BP 171/87; PULSE 85; RESP 16; TEMP 36.8; O2SAT 98; BMI 29.8
--- NOTE | 2025-01-31 17:24 | ED.HA ---
HPI - Headache General Chief Complaint: Headache Stated Complaint: headache Time Seen by Provider: 01/31/25 17:10 Mode of arrival: Family Vehicle History of Present Illness HPI Narrative: 49-year-old woman with a history of migraines in other headache complaints but no other significant issues typically is able to manage her headaches with ibuprofen, caffeine, water and sleep for the past 48 hours she has had headache started in the occiput bilaterally is ready up the back of her head not associated with nausea, vomiting, photophobia, or, irritability but also not responding to any of her usual treatments. The pain does seem to come in waves. Comes in for further evaluation. Related Data Previous Rx's ?Medication ?Instructions ?Recorded ferrous sulfate 325 mg (65 mg 325 mg PO Q OTHER DAY #45 tabs 10/05/24 iron) tablet desogestrel 0.15 mg-ethinyl 1 tab PO DAILY #84 tabs 12/09/24 estradiol 0.03 mg tablet (Apri) Allergies Allergy/AdvReac Type Severity Reaction Status Date / Time escitalopram (From Lexapro) AdvReac Severe increased Verified 01/31/25 17:14 anxiety Review of Systems Review of Systems Narrative: Pertinent positive and negative findings as per HPI Patient History Medical History (Updated 01/31/25 @ 19:32 by Valery Moran MD) Frequent headaches alcohol intake frequency: 0-2 drinks per day Exam Initial Vital Signs Initial Vital Signs: Vital Signs Temperature 98.2 F 01/31/25 16:50 Pulse Rate 85 01/31/25 16:50 Respiratory Rate 16 01/31/25 16:50 Blood Pressure 171/87 H 01/31/25 16:50 Pulse Oximetry 98 01/31/25 16:50 Oxygen Delivery Method Room Air 01/31/25 16:50 General: Alert appropriate in no acute distress HEENT: Pupils equal round and reactive, unrestricted extraocular eye movement Respiratory: Able to speak in full sentences, no obvious respiratory distress Skin: No obvious rashes, warm and dry Neurologic: Grossly intact no obvious asymmetries or abnormalities Psych: appropriate insight and affect, cooperative Course Orders Ordered: Discontinued Medications Dexamethasone (Dexamethasone 10 Mg/Ml Vial) 10 mg IV NOW ONE Stop: 01/31/25 17:23 Last Admin: 01/31/25 18:14 Dose: 10 mg Documented By: HUBER Diphenhydramine HCl (Diphenhydramine 50 Mg/Ml Vial) 25 mg IV NOW ONE Stop: 01/31/25 17:23 Last Admin: 01/31/25 18:14 Dose: 25 mg Documented By: HUBER Droperidol (Droperidol 2.5 Mg/Ml Vial) 0.625 mg IV NOW ONE Stop: 01/31/25 17:23 Last Admin: 01/31/25 18:14 Dose: 0.625 mg Documented By: HUBER Sodium Chloride (Normal Saline 0.9%) 1,000 mls @ 1,000 mls/hr IV BOLUS ONE Stop: 01/31/25 18:21 Last Admin: 01/31/25 18:10 Dose: 1,000 mls/hr Documented By: HUBER Ketorolac Tromethamine (Ketorolac 30 Mg/Ml Vial) 15 mg IV NOW ONE Stop: 01/31/25 17:23 Last Admin: 01/31/25 18:14 Dose: 15 mg Documented By: HUBER Vital Signs Vital signs: Vital Signs - 8 hr 01/31/25 16:50 Temperature 98.2 F Pulse Rate 85 Respiratory Rate 16 Blood Pressure 171/87 H Pulse Oximetry 98 Oxygen Delivery Method Room Air MDM - Headache MDM Narrative Medical decision making narrative: 49-year-old woman with more than 48 hours of significant headache. Begins in the occiput and moves toward the crown. Does not have the perceptual disturbances that she usually gets with a migraine. There has been no trauma, she describes no fever, no nuchal rigidity. Her usual treatments have not been effective and she comes in for help. She is treated with IV fluids, Inapsine, ketorolac, Benadryl and dexamethasone. By the time the IV fluids have completely infused her headache is significantly improved. There is no indication of infection, intracranial hemorrhage, mass effect and no indication for imaging or hospitalization at this time. She is safe for discharge Discharge Plan Departure Patient Disposition: Home Clinical Impression: Headache Qualifiers: Headache type: unspecified Headache chronicity pattern: acute headache Intractability: not intractable Qualified Code(s): R51.9 - Headache, unspecified Instructions: DI for Headache Activity Restrictions/Additional Instructions: Thank you for coming in today I am not sure why this headache was particularly worse than any of your others and did not respond to your usual treatment. In the emergency department you were given a L of fluid, Inapsine, Toradol, IV Benadryl and an IV steroid to help with inflammation so any other medications wear off the headache and does not return. If you develop a fever, worsening headaches, any neurologic complaints or further findings of concern please feel free to return to the emergency department for further evaluation. Prescriptions: No Action ferrous sulfate 325 mg (65 mg iron) tablet 325 mg PO Q OTHER DAY Qty: 45 2RF desogestrel-ethinyl estradiol [Apri] 0.15-0.03 mg tablet 1 tab PO DAILY Qty: 84 0RF Referrals: Colette Em DO [Primary Care Provider, Family Practice] Stand Alone Forms: Patient Portal/API
[2025-01-31] MEDS: SODIUM CHLORIDE 0.9% 1,000 ML 1000 ML IV (18:10)
[2025-01-31] MEDS: KETOROLAC 30 MG/ML VIAL 15 MG IV (18:14)
[2025-01-31] MEDS: droPERidol 2.5 MG/ML VIAL 0.625 MG IV (18:14)
[2025-01-31] MEDS: diphenhydrAMINE 50 MG/ML VIAL 25 MG IV (18:14)
== END 2025-01-31 19:40 | disposition home or self-care (01) ==
PROVIDERS: Emergency Provider Emergency Medicine; PCP Family Medicine
DX: R51.9 Headache, unspecified (principal)
CPT/HCPCS: 96361; 96374; 96375; 99281; 99283; 99284; J1100; J1200; J1790; J1885

== ENCOUNTER → 2025-02-03 13:36 | Outpatient (CLI) | payer OTHER, SELFPAY ==
--- NOTE | 2025-02-03 13:37 | DI.RAD.S_ITS ---
PROCEDURE: XR CERVICAL SPINE 2V OR 3V INDICATIONS: acute on chronic pain more to right side TECHNIQUE: 3 view(s) of the cervical spine were acquired. COMPARISON: (Prior imaging is not available for review from the archive at the time of this dictation.) FINDINGS: Bones: No fractures or dislocations to the T1 level. The lateral masses of C1 appear intact on the odontoid view. No suspicious bony lesions. There is overall straightening of the normal cervical lordosis. No focal AP alignment abnormality is seen. The disc heights are well preserved. Soft tissues: No prevertebral soft tissue swelling. IMPRESSION: Straightening of the normal cervical lordosis is seen, which is commonly observed in patients with muscular spasm. Dictated by: Ac Silva M.D. on 02/03/2025 at 13:04 Approved by: Ac Silva M.D. on 02/03/2025 at 13:05
== END ==
PROVIDERS: PCP Family Medicine; Referring Provider Physician Assistant; Visit Provider Physician Assistant
DX: M54.2 Cervicalgia (principal)
CPT/HCPCS: 72040